=== PATIENT | female | born 1945 | race African-American/Black ===

== ENCOUNTER → 2018-07-24 | Day surgery (SDC) | payer MEDICARE ==
[2018-07-17 14:35] LABS: BASOPHILS % 0.6 % (0.0-1.0); EOSINOPHILS # (AUTO) 0.1 (0.0-0.4); EOSINOPHILS % 1.1 % (0.0-6.0); HEMATOCRIT 38.6 % (34.2-44.1); HEMOGLOBIN 12.5 g/dL (12.0-16.0); LYMPHOCYTES # (AUTO) 2.7 (1.0-3.2); LYMPHOCYTES % 37.2 % (18.0-39.1); MEAN CORPUSCULAR HEMOGLOBIN 29.9 pg (28-32); MEAN CORPUSCULAR HGB CONC 32.4 g/dL (31-35); MEAN CORPUSCULAR VOLUME 92.3 fL (81-99); MONOCYTES # (AUTO) 0.6 (0.2-0.8); MONOCYTES % 8.6 % (4.4-11.3); NEUTROPHILS # (AUTO) 3.7 (2.1-6.9); NEUTROPHILS % 52.4 % (38.7-80.0); PLATELET COUNT 234 x10e3/uL (140-360); RED BLOOD COUNT 4.18 x10e6/uL (3.6-5.1); RED CELL DISTRIBUTION WIDTH 13.3 % (11.7-14.4)
[2018-07-17 14:52] LABS: ANION GAP 13.8 mmol/L (8-16); BLOOD UREA NITROGEN 18 mg/dL (7-26); BUN/CREATININE RATIO 17 (6-25); CALCIUM 10.1 mg/dL (8.4-10.2); CARBON DIOXIDE 26 mmol/L (22-29); CHLORIDE 105 mmol/L (98-107); CREATININE, SERUM 1.07 mg/dL (0.57-1.11); EST GLOMERULAR FILTRATION RATE > 60 ML/MIN (60-); GLUCOSE 81 mg/dL (74-118); POTASSIUM 3.8 mmol/L (3.5-5.1); SODIUM 141 mmol/L (136-145)
--- NOTE | 2018-07-17 15:22 | Diagnostic Imaging Report ---
EXAMINATION: PA and lateral views of the chest. COMPARISON: None CLINICAL HISTORY: Preoperative evaluation, stomach surgery DISCUSSION: Lines/tubes: None. Lungs: The lungs are well inflated and clear. No pneumonia or pulmonary edema. Pleura: No pleural effusion or pneumothorax. Heart and mediastinum: The cardiomediastinal silhouette is normal. Bones and soft tissues: No acute bony abnormalities. IMPRESSION: No acute cardiopulmonary abnormalities. Signed by: Dr. Boby Durand M.D. on 07/17/2018 3:19 PM
[~2018-07-24] MED LIST: ACETAMINOPHEN/CODEINE 300MG - 30MG TAB ONE; ARICEPT5 MG PO; ATORVASTATIN CA10 MG PO; BUPIVACAINE 0.25%/EPI 30ML SDV INJ ONE; DEXAMETHASONE SOD PHOS INJ 4 MG/ML VIAL ONE; FENTANYL CITRATE/PF 100MCG/2 ML INJ ONE; GLYCOPYRROLATE INJ 1MG/ 5 ML SYR ONE; KETOROLAC TROMETHAMINE 30 MG/ML VIAL ONE; LIDOCAINE HCL 2% LOCAL INJ 5 ML SDV VIAL INJ ONE; LOSARTAN-HCTZ1 EAC2 PO; MIDAZOLAM HCL 2 MG/2 ML VIAL ONE; NEOSTIGMINE 5 MG/5ML SYR ONE; ONDANSETRON HCL INJ 2MG/ML 2ML 2 MG/ML VIAL ONE; PROPOFOL IV EMULSION 10 MG/ML 20 ML VIAL ONE; ROCURONIUM BROMIDE 10 MG/ML 5ML VIAL ONE; SEVOFLURANE INHAL SOLN 250 ML PEN BTL ONE
--- OUTSIDE RECORDS SUMMARY | 2018-07-24 05:38 | XMS REPORT | Clinical Summary ---
Author Author [facility] Organization [facility] Address Unknown Phone Unavailable Care Team Providers Care Wheel Installer Name Role Phone Rob Ochoa MD PCP Allergies No Known Allergies Medications No known medications Active Problems Not on file Encounters Care Team Description Date Type Specialty Rehrer, Keegan Garcia, Jasvir Rapp, Lower abdominal pain (Primary Dx); Hypertension, unspecified type 04/06/2018 Emergency Emergency Medicine after 07/23/2017 Social History Date Tobacco Use Types Packs/Day Years Used Never Smoker Smokeless Tobacco: Never Used Alcohol Use Drinks/Week oz/Week Comments No Alcohol Habits Answer Date Recorded How often do you have a drink containing alcohol? Never 04/06/2018 How many drinks containing alcohol do you have on Not asked a typical day when you are drinking? How often do you have six or more drinks on one Not asked occasion? Sex Assigned at Date Recorded Not on file Industry Job Start Date Occupation Not on file Not on file Not on file Travel End Travel History Travel Start No recent travel history available. Last Filed Vital Signs Time Taken Vital Sign Reading 04/06/2018 10:37 PM [employer] [employer] [facility] Blood Pressure 174/101 04/06/2018 10:37 PM [employer] [facility] Pulse 112 04/06/2018 2:38 PM [employer] [facility] Temperature 36.3 C (97.4 F) 04/06/2018 10:37 PM [employer] [facility] Respiratory Rate 17 04/06/2018 10:37 PM [facility] [facility] Oxygen Saturation 99% - Inhaled Oxygen - Concentration - Weight - 04/06/2018 2:36 PM [employer] [facility] Height 170.2 cm (5' 7") - Body Mass Index - Plan of Treatment Health Maintenance Due Date Last Done Comments BREAST CANCER SCREENING 1996 COLON CANCER SCREENING 1996 SHINGLES VACCINES (#1) 1996 65+ PNEUMOCOCCAL VACCINE 2011 (1 of 2 - PCV13) PNEUMOCOCCAL 2011 POLYSACCHARIDE VACCINE AGE 65 AND OVER INFLUENZA VACCINE 12/13/2017 Procedures Comments Procedure Name Priority Date/Time Associated Diagnosis CT ABDOMEN PELVIS W STAT 04/06/2018 CONTRAST 8:24 PM [facility] [employer] [facility] LACTIC ACID LEVEL STAT 04/06/2018 7:40 PM [employer] [facility] ESTIMATED GFR STAT 04/06/2018 7:40 PM [employer] [facility] HCG QUALITATIVE, SERUM STAT 04/06/2018 SCREEN 7:40 PM [employer] [facility] COMPREHENSIVE METABOLIC STAT 04/06/2018 PANEL 7:40 PM [employer] [facility] POTASSIUM LEVEL STAT 04/06/2018 7:10 PM [employer] [facility] ALKALINE PHOSPHATASE STAT 04/06/2018 7:10 PM [facility] [facility] AST (SGOT) STAT 04/06/2018 7:10 PM [employer] [facility] ALT (SGPT) STAT 04/06/2018 7:10 PM [facility] [facility] LACTIC ACID LEVEL STAT 04/06/2018 5:39 PM [employer] [facility] ALT (SGPT) STAT 04/06/2018 5:39 PM [facility] [facility] AST (SGOT) STAT 04/06/2018 5:39 PM [employer] [facility] ALKALINE PHOSPHATASE STAT 04/06/2018 5:39 PM [employer] [facility] POTASSIUM LEVEL STAT 04/06/2018 5:39 PM [employer] [facility] ESTIMATED GFR STAT 04/06/2018 3:36 PM [employer] [facility] LIPASE LEVEL STAT 04/06/2018 3:36 PM [employer] [facility] COMPREHENSIVE METABOLIC STAT 04/06/2018 PANEL 3:36 PM [employer] [facility] HC COMPLETE BLD COUNT STAT 04/06/2018 W/AUTO DIFF 3:36 PM [facility] [facility] [facility] ECG 12-LEAD STAT 04/06/2018 2:43 PM [employer] [facility] after 07/23/2017 Results * CT Abdomen Pelvis W Contrast (04/06/2018 8:24 PM [employer] [facility]) Narrative Performed At CT ABDOMEN PELVIS W CONTRAST RADIANT CLINICAL INDICATION:Abd painunspecified TECHNIQUE: Multidetector CT of the abdomen and pelvis was performed following intravenous administration of iodinated contrast with multiplanar reformats. CT scans are performed using radiation dose reduction techniques (iterative reconstruction and/or automated exposure control). Technical factors are evaluated and adjusted to ensure appropriate moderation of exposure. Automated dose management technology is applied to adjust radiation exposure while achieving a diagnostic quality image. COMPARISON:None. FINDINGS: Lung bases:Clear. Trace pericardial effusion. Liver:Normal. Gallbladder and biliary:In the right upper quadrant, there is a 14.4 x 10.9 x 11.9 cm circumscribed mass with peripheral nodular hyperattenuation and few areas of peripheral and central calcification. It is centered in the region of the expected gallbladder, though it is indeterminate if it arises from the gallbladder, right adrenal gland, or liver. Common bile duct is not dilated. Pancreas:Normal. Spleen:Normal. Gastrointestinal:Sigmoid diverticulosis. Large and small bowel are normal in caliber. Appendix is not visualized. No focal inflammatory changes within the right lower quadrant of the abdomen. Adrenals: Right adrenal gland is not definitively visualized. Left adrenal gland within normal limits.. Kidneys and ureters: Left renal cyst measuring 2.1 cm. Mass effect on the right kidney related to right upper quadrant mass as above. No hydronephrosis. Urinary bladder:Normal. Lymph nodes:No enlarged lymph nodes in the abdomen or pelvis. Peritoneum:No ascites or free air. Vascular:Mild atherosclerotic changes of the abdominal aorta and major branch vessels. Reproductive organs:Uterus is atrophic. Coarse calcifications at the right adnexa. Abdominal wall: Few gluteal subcutaneous injection granulomas. Bones:Moderate degenerative changes of the thoracolumbar spine. IMPRESSION: 1. Right upper quadrant mass (14.4 x 10.9 x 11.9 cm) centered in the region of the expected gallbladder, though it is indeterminate if it arises from the gallbladder, right adrenal gland, or liver. Recommend further characterization with contrast-enhanced MRI. 2. Sigmoid diverticulosis without diverticulitis. [id number] Procedure Note Interface, Radiology Results Incoming - 04/06/2018 9:[address] [address] ABDOMEN PELVIS W CONTRAST CLINICAL INDICATION: Abd pain unspecified TECHNIQUE: Multidetector CT of the abdomen and pelvis was performed following intravenous administration of iodinated contrast with multiplanar reformats. CT scans are performed using radiation dose reduction techniques (iterative reconstruction and/or automated exposure control). Technical factors are evaluated and adjusted to ensure appropriate moderation of exposure. Automated dose management technology is applied to adjust radiation exposure while achieving a diagnostic quality image. COMPARISON: None. FINDINGS: Lung bases: Clear. Trace pericardial effusion. Liver: Normal. Gallbladder and biliary: In the right upper quadrant, there is a 14.4 x 10.9 x 11.9 cm circumscribed mass with peripheral nodular hyperattenuation and few areas of peripheral and central calcification. It is centered in the region of the expected gallbladder, though it is indeterminate if it arises from the gallbladder, right adrenal gland, or liver. Common bile duct is not dilated. Pancreas: Normal. Spleen: Normal. Gastrointestinal: Sigmoid diverticulosis. Large and small bowel are normal in caliber. Appendix is not visualized. No focal inflammatory changes within the right lower quadrant of the abdomen. Adrenals: Right adrenal gland is not definitively visualized. Left adrenal gland within normal limits.. Kidneys and ureters: Left renal cyst measuring 2.1 cm. Mass effect on the right kidney related to right upper quadrant mass as above. No hydronephrosis. Urinary bladder: Normal. Lymph nodes: No enlarged lymph nodes in the abdomen or pelvis. Peritoneum: No ascites or free air. Vascular: Mild atherosclerotic changes of the abdominal aorta and major branch vessels. Reproductive organs: Uterus is atrophic. Coarse calcifications at the right adnexa. Abdominal wall: Few gluteal subcutaneous injection granulomas. Bones: Moderate degenerative changes of the thoracolumbar spine. IMPRESSION: 1. Right upper quadrant mass (14.4 x 10.9 x 11.9 cm) centered in the region of the expected gallbladder, though it is indeterminate if it arises from the gallbladder, right adrenal gland, or liver. Recommend further characterization with contrast-enhanced MRI. 2. Sigmoid diverticulosis without diverticulitis. [id number] Performing Organization Address City/State/Zipcode Phone Number [facility] [address] [place] [address] * Estimated GFR (04/06/2018 7:40 PM [employer] [facility]) Only the most recent of 2 results within the time period is included. Estimated GFR 88 mL/min/1.73 m2 [facility] Comment: HOSPITAL CatergoryUnitsInte rpretation G1 >=90 Normal or high G2 60-89Mildly decreased [id number] Mildly to moderately decreased C5m20-19 Moderately to severely decreased G4 15-29Severely decreased G5 <15Kidney failure The eGFR was calculated using the Chronic Kidney Disease Epidemiology Collaboration (CKD-EPI) equation. Interpretation is based on recommendations of the National Kidney Foundation-Kidney Disease Outcomes Quality Initiative (NKF-KDOQI) published in 2014. Specimen Plasma specimen Performing Organization Address City/[facility] Phone Number [facility] [place] [address] PATHOLOGY AND GENOMIC MEDICINE [address] * hCG qualitative, serum screen (04/06/2018 7:40 PM [employer] SEAM[facility]) hCG qualitative, serum NegativeComment: Sensitivity [facility] of HCG test: 25 mIU/mL HOSPITAL Specimen Blood Performing Organization Address City/[facility] Phone Number [facility] [place] [address] PATHOLOGY AND GENOMIC MEDICINE [address] * Lactic acid level (04/06/2018 7:40 PM [employer] SE[employer]) Only the most recent of 2 results within the time period is included. Lactic acid 1.6 0.5 - 2.2 mmol/L [facility] Specimen Plasma specimen Performing Organization Address [facility] Phone Number [facility] [place] [address] PATHOLOGY AND GENOMIC MEDICINE [address] * Comprehensive metabolic panel (04/06/2018 7:40 PM [employer]) Only the most recent of 2 results within the time period is included. Sodium 144 135 - 148 mEq/L [facility] Potassium 4.4 3.5 - 5.0 mEq/L [facility] Chloride 107 98 - 112 mEq/L [facility] CO2 25 24 - 31 mEq/L [facility] Anion gap 12@ANIO 7 - 15 mEq/L [facility] BUN 11 8 - 23 mg/dL [facility] Creatinine 0.78 0.50 - 0.90 mg/dL [facility] Glucose 111 (H) 65 - 99 mg/dL [facility] Calcium 9.8 8.8 - 10.2 mg/dL [facility] Protein 7.4 6.3 - 8.3 g/dL [facility] Comment: HOSPITAL 4.6-7.0 g/dL 1 week 4.4-7.6 g/dL 7 months-1year 5.1-7.3 g/dL 1-2 years5.6-7 .5 g/dL >3 years6.0-8 .0 g/dL 18-150 6.3-8.3 g/dL Albumin 3.5 3.5 - 5.0 g/dL [facility] A/G ratio 0.9 0.7 - 3.8 [facility] Alkaline phosphatase 111 (H) 35 - 104 U/L [facility] AST 23 10 - 35 U/L [facility] ALT 19 5 - 50 U/L [facility] Total bilirubin 0.4 0.0 - 1.2 mg/dL [facility] Specimen Plasma specimen Performing Organization Address City/[facility] Services[facility] Phone Number [facility] [place] [address] PATHOLOGY AND GENOMIC MEDICINE [address] * ALT (SGPT) (04/06/2018 7:10 PM [employer] [facility]) Only the most recent of 2 results within the time period is included. ALT 16 5 - 50 U/L [facility] Specimen Plasma specimen Performing Organization Address City/[facility] Services[facility] Phone Number [facility] [place] [address] PATHOLOGY AND GENOMIC MEDICINE [address] * AST (SGOT) (04/06/2018 7:10 PM [employer] SE[employer]) Only the most recent of 2 results within the time period is included. AST 22 10 - 35 U/L [facility] Specimen Plasma specimen Performing Organization Address City/[facility] Phone Number [facility] [place] [address] PATHOLOGY AND GENOMIC MEDICINE [address] * Potassium level (04/06/2018 7:10 PM [employer]IED SEAMAN) Only the most recent of 2 results within the time period is included. Potassium 3.9 3.5 - 5.0 mEq/L [facility] Specimen Plasma specimen Performing Organization Address City/[facility] Phone Number [facility] DEPARTMENT OF [address] [place] [address] PATHOLOGY AND GENOMIC MEDICINE [address] * Alkaline phosphatase (04/06/2018 7:10 PM ABLE [employer]IED SEAMAN) Only the most recent of 2 results within the time period is included. Alkaline phosphatase 115 (H) 35 - 104 U/L [facility] Specimen Plasma specimen Performing Organization Address City/[facility] Phone Number [facility] [place] [address] PATHOLOGY AND GENOMIC MEDICINE [address] * CBC with platelet and differential (04/06/2018 3:36 PM [employer]) WBC 8.62 4.50 - 11.00 k/uL [facility] RBC 4.98 4.20 - 5.50 m/uL [facility] HGB 14.8 12.0 - 16.0 g/dL [facility] HCT 47.2 (H) 37.0 - 47.0 % [facility] MCV 94.8 82.0 - 100.0 fL [facility] MCH 29.7 27.0 - 34.0 pg [facility] MCHC 31.4 31.0 - 37.0 g/dL [facility] RDW - SD 44.1 37.0 - 55.0 fL [facility] MPV 11.3 8.8 - 13.2 fL [facility] Platelet count 194 150 - 400 k/uL [facility] Nucleated RBC 0.00 /100 WBC [facility] Neutrophils 81.1 (H) 39.0 - 69.0 % [facility] Lymphocytes 15.2 (L) 25.0 - 45.0 % [facility] Monocytes 3.0 0.0 - 10.0 % [facility] Eosinophils 0.1 0.0 - 5.0 % [facility] Basophils 0.3 0.0 - 1.0 % [facility] Immature granulocytes 0.3Comment: "Immature 0.0 - 1.0 % [facility] granulocytes" (promyelocytes, HOSPITAL myelocytes, metamyelocytes) Specimen Blood Performing Organization Address [facility] Phone Number [facility] DEPARTMENT OF [address] [place] [id number] PATHOLOGY AND GENOMIC MEDICINE [address] * Lipase level (04/06/2018 3:36 PM [employer] SEAM[employer]) Lipase 111 (H) 13 - 60 U/L [facility] Specimen Plasma specimen Performing Organization Address [facility] Phone Number [facility] DEPARTMENT OF [address] [place] [address] PATHOLOGY AND GENOMIC MEDICINE [address] * ECG 12 lead (04/06/2018 2:43 PM [employer]) Ventricular rate 65 [facility] Atrial rate 65 [facility] DE interval 166 [facility] QRSD interval 82 [facility] QT interval 418 [facility] QTC interval 434 [facility] P axis 1 76 [facility] QRS axis 1 71 [facility] T wave axis 4 [facility] EKG impression Normal sinus rhythm-Low [facility] voltage QRS-Borderline ECG-No previous ECGs available- Narrative Performed At Performing Organization Address [facility] Phone Number [address] [phone] after 07/23/2017 Insurance Payer Benefit Subscriber ID Type Phone Address Plan / Group [employer] xxxxxxxxx [facility] Advance Directives Patient has advance care planning documents on file. For more information, hernán jcainto contact: [address] [address]
--- OUTSIDE RECORDS SUMMARY | 2018-07-24 05:38 | XMS REPORT ---
Author [facility] Address Unknown Phone Unavailable Care Team Providers Care Wood Patternmaker Name Role Phone JOSEPH OHARA Unavailable Unavailable Problems This patient has no known problems. Allergies, Adverse Reactions, Alerts This patient has no known allergies or adverse reactions. Medications This patient has no known medications. Results Test Description Test Time Test Comments Text Results Atomic Results Result Comments CHEST 2 VIEWS 2018-07-17 15:19:00 [place] [address] Patient Name: MARILUZ LEE MR #: [id number] : 1945 Age/Sex: 73/F Req #: [id number] [facility] Physician: Ordered by: JOSEPH OHARA MD Report #: [id number] Location: OR Room/Bed: Procedure: [id number] DX/CHEST 2 VIEWS Exam Date: 07/17/18 Exam Time: 1445 REPORT STATUS: Signed EXAMINATION: PA and lateral views of the chest. CO MPARISON: None CLINICAL HISTORY: Preoperative evaluation, stomach surgery DISCUSSION: Lines/tubes: None. Lungs: The lungs are well inflated and clear. No pneumonia or pulmonary edema. Pleura: No pleural effusion or pneumothorax. Heart and mediastinum: The cardiomediastinal silhouette is normal. Bones and soft tissues: No acute bony abnormalities. IMPRESSION: No acute cardiopulmonary abnormalities. Signed by: Dr. Brandi Blount M.D. on 07/17/2018 3:19 PM Dictated By: BRANDI BLOUNT MD Transcribed By: TOAÑ on 07/17/181518 COPY TO: JOSEPH OHARA MD
[2018-07-24 12:00] VITALS: BP 116/64
--- NOTE | 2018-09-18 18:42 | Operative Report ---
DATE OF PROCEDURE: SURGEON: Abby Garcia MD PREOPERATIVE DIAGNOSIS: Right adnexal mass. POSTOPERATIVE DIAGNOSIS: Right adnexal mass. PROCEDURE: Laparoscopic right salpingo-oophorectomy. COMPLICATIONS: None. ESTIMATED BLOOD LOSS: Minimal. PROCEDURE IN DETAIL: The patient was taken to the OR. General anesthesia was induced. She was prepped and draped in a sterile fashion, placed in dorsal lithotomy position. After examination, under anesthesia two Allis clamps were applied at the umbilicus. Infraumbilical skin incision was made with scalpel and 10 mm bladeless trocar and cannula were passed through the abdominal site into the abdominal cavity without difficulty. Trocar was removed and scope was passed through the abdominal cavity into the abdominal cavity. Abdomen was insufflated with carbon dioxide gas. Two other ports were made in the lower quadrant, one in the right 5 mm each and 5 mm bladeless trocar and cannula were passed through each incision under direct visualization. Trocars were removed and grapser as well as LigaSure were passed through into the abdominal cavity. Visualization showed normal uterus, right ovary and right adnexal mass. Left ovary looked normal. Uterus looked normal. Using the LigaSure the infundibulopelvic on the right side was grasped, cauterized and cut, more bites were made to reduce the right adnexa together with tube and ovary of its attachments until it was completely released. A 5 mm scope was passed through the peripheral port and then the EndoCatch was passed through the 10 mm umbilical port, opened. The right adnexal mass was placed inside the Endopouch and removed under direct visualization from the umbilicus. Abdomen was deflated and rectus fascia of the umbilicus was approximated using Vicryl 2-0 and skin was closed with Dermabond at the three sites. The patient tolerated the procedure well. Lap, instrument and needle counts were correct x2 at the end of procedure. Abby Garcia MD DD/ANAYA /[id number]
== END | disposition home or self-care (01) ==
LOC: OR 05:35
PROVIDERS: ATTEND Obstetrics & Gynecology
DX: R19.09 Other intra-abdominal and pelvic swelling, mass and lump (principal); D25.9 Leiomyoma of uterus, unspecified; Z01.810 Encounter for preprocedural cardiovascular examination; Z01.812 Encounter for preprocedural laboratory examination; Z91.018 Allergy to other foods; F41.9 Anxiety disorder, unspecified; I10 Essential (primary) hypertension; R05 Cough; F03.90 Unspecified dementia, unspecified severity, without behavioral disturbance, psychotic disturbance, mood disturbance, and anxiety
CPT/HCPCS: 36415; 58661; 71046; 80048; 85025; 88305; 93005; J1100; J1885; J2001; J2250; J2405; J2704; J3490; 88307